=== PATIENT | female | born 1970 | race Two or more races ===

== ENCOUNTER 2025-05-21 18:29 | Emergency (ER) | payer MEDICAID ==
[~2025-05-21] VITALS: Ht 165.1 cm; Wt 80.9 kg
[2025-05-21 18:29] VITALS: BP 162/85; PULSE 105; RESP 18; TEMP 99.1; O2SAT 98
[2025-05-21] MEDS ORDERED: KETOROLAC TROMETH 60MG/2ML VIAL IM ONE (18:45)
[2025-05-21] MEDS ORDERED: HYDROcodone-ACET 10/325MG TAB PO ONE (18:45)
== END 2025-05-21 20:28 | disposition left against medical advice (07) ==
LOC: EDBD 18:29 → ER 18:29 → EDUNIT# 18:29 → ER 20:28
DX: M54.50 Low back pain, unspecified (principal); Z53.21 Procedure and treatment not carried out due to patient leaving prior to being seen by health care provider
CPT/HCPCS: 36415; 84484